=== PATIENT | female | born 1955 | race Caucasian/White ===

== ENCOUNTER → 2020-06-27 | Outpatient (CLI) | payer BC ==
--- NOTE | 2020-06-30 09:14 | RAD ---
EXAM DESCRIPTION: Ankle,Right 2 Views CLINICAL HISTORY: 65 years Female, EFFUSION COMPARISON: None. FINDINGS: 2 views of the right ankle show prominent diffuse soft tissue swelling with a large joint effusion. Bone fragment adjacent to the tip of the lateral malleolus does not appear acute. Markedly abnormal appearance of the tibiotalar joint with irregular sclerosis and multiple erosions in the talar dome and tibial plafond. The subtalar joint is unremarkable. IMPRESSION: Markedly abnormal appearance of the tibiotalar joint as detailed above, suspicious for infection. If not obtained already, orthopedic consultation is recommended. Diffuse soft tissue swelling and a large right ankle joint effusion. Electronically signed by: William Campbell MD 06/30/2020 9:12 AM [facility]
--- NOTE | 2020-06-30 09:15 | RAD ---
EXAM DESCRIPTION: Foot,Right 2 Views CLINICAL HISTORY: 65 years Female, EFFUSION COMPARISON: None. FINDINGS: 2 views of the right foot were obtained. Abnormal appearance of the tibiotalar joint, please see separate report from today's right ankle series for further discussion. No acute right foot fracture or malalignment. Bone fragments adjacent to the tips of the medial and lateral malleolus likely not appear acute no radiopaque foreign body or soft tissue gas. Degenerative changes in the midfoot. IMPRESSION: Degenerative changes without additional right foot abnormality. Markedly abnormal appearance of the tibiotalar joint, please see separate report from today's right ankle series for further discussion. Electronically signed by: William Campbell MD 06/30/2020 9:13 AM [facility]
== END ==
LOC: LAB.O 15:33
PROVIDERS: ATTEND Nurse Practitioner Family
DX: M19.071 Primary osteoarthritis, right ankle and foot (principal); M25.9 Joint disorder, unspecified; M79.9 Soft tissue disorder, unspecified; M25.471 Effusion, right ankle